=== PATIENT | male | born 1935 ===

== ENCOUNTER 2016-07-30 05:54 | Day surgery (SDC) | payer MEDICARE ==
[2016-07-27 07:43] VITALS: BMI 29.8
[2016-07-30] MEDS ORDERED: Lactated Ringer's 1,000 ML IV ONE (07:02)
[2016-07-30] MEDS ORDERED: Midazolam 2 MG/2 ML VIAL ONE (07:36)
[2016-07-30] MEDS ORDERED: Etomidate 20 mg/10ml Inj IV ONE (07:36)
[2016-07-30] MEDS ORDERED: Propofol 10 mg/ml Inj (20 ML) ONE (07:36)
[2016-07-30] MEDS ORDERED: cefTRIAXone (Rocephin) 1 gm Inj ONE (07:37)
[2016-07-30] MEDS ORDERED: Iohexol 300 10 ML ONE (07:37)
[2016-07-30] MEDS ORDERED: Succinylcholine 200 mg/10 ml Inj IV ONE (07:39)
[2016-07-30] MEDS ORDERED: cefTRIAXone (Rocephin) 1 gm Inj IVPB ONE (08:00)
[2016-07-30] MEDS ORDERED: ePHEDrine 50 mg/ml Inj ONE (08:00)
--- NOTE | 2016-07-30 09:10 | OP ---
PROCEDURE DATE: 07/30/2016 PREOPERATIVE DIAGNOSIS: Prostate hypertrophy. POSTOPERATIVE DIAGNOSIS: Prostate hypertrophy. PROCEDURE PERFORMED: GreenLight laser of the prostate. The patient was placed on the operating table in the dorsal lithotomy position. The groin was draped and prepped in a sterile manner. Using a laser scope, I entered into the bladder atraumatically, id entified the landmarks of the prostate. Verumontanum was identified. The ureteral orifices were maryanne ntified. Lasering began at 80 shane, and then proceeded to a maximum of 120 shane at the point of wh ich I had a very good opening from the veru into the bladder. I stopped the procedure. I estimated the blood loss to be less than 20 mL. The patient then had the instrumentation removed. A #22 three -way Sierra catheter was inserted. CBI was begun, and the urine outflow was practically clear. Kristy Jimenez MD cc: 48 TT: 07/30/2016 09:09:08 jn
--- NOTE | 2016-07-30 09:10 | DS ---
The patient was admitted today for elective GreenLight laser of the prostate. Postoperatively, the p atient was stable. The urine was clear. He will be discharged with the Sierra catheter to leg bag, a nd he will follow up in my office in 2 days for removal of that apparatus. The patient was advised h ow to maintain hygiene of that area, and any questions, he can call my office. Kristy Jimenez MD cc: 48 TT: 07/30/2016 09:10:07 jn
[2016-07-30] MEDS ORDERED: SODIUM CHLORIDE 3,000 ML IR ONE ×2 (09:50→10:40)
[2016-07-30 10:26] VITALS: RESP 18
[2016-07-30 13:19] VITALS: BP 124/67; PULSE 60; TEMP 97.5; O2SAT 97
== END 2016-07-30 13:25 | disposition home or self-care (01) ==
LOC: H.OPSURG 05:54
PROVIDERS: ATTEND Urology
DX: N40.1 Benign prostatic hyperplasia with lower urinary tract symptoms (principal); I10 Essential (primary) hypertension
CPT/HCPCS: 52649; J0330; J0696; J2001; J2250; J2270; J2405; J2704; J3010; J7120